=== PATIENT | male | born 1960 | race Two or more races ===

== ENCOUNTER 2017-03-25 22:35 | Observation (INO) | payer SELFPAY ==
[2017-03-25 22:41] VITALS: PULSE 76
--- NOTE | 2017-03-25 23:27 | ED PDOC ---
HPI: Psych/Substance Abuse Time Seen by Provider: 03/25/17 22:50 Chief Complaint (Nursing): Alcohol Ingestion Chief Complaint (Provider): Alcohol ingestion History Per: EMS History/Exam Limitations: no limitations Onset/Duration Of Symptoms: Hrs Current Symptoms Are (Timing): Still Present Additional Complaint(s): The patient is a 56yo male, brought in by EMS after finding the patient publicly intoxicated. Patient admits to drinking alcohol today and currently he offers no medical complaints. Past Medical History Reviewed: Historical Data, Nursing Documentation, Vital Signs Vital Signs: Last Vital Signs Temp 98.0 F 03/25/17 22:37 Pulse 76 03/25/17 22:37 Resp 20 03/25/17 22:37 BP 126/87 03/25/17 22:37 Pulse Ox 99 03/25/17 22:37 - Medical History PMH: No Chronic Diseases - Surgical History Surgical History: No Surg Hx - Family History Family History: States: No Known Family Hx - Allergies Allergies/Adverse Reactions: Allergies Allergy/AdvReac Type Severity Reaction Status Date / Time No Known Allergies Allergy Verified 03/25/17 22:37 Review of Systems ROS Statement: Except As Marked, All Systems Reviewed And Found Negative ( patient has no medical complaints) Physical Exam - Reviewed Nursing Documentation Reviewed: Yes Vital Signs Reviewed: Yes - Physical Exam Appears: Positive for: No Acute Distress Head Exam: Positive for: ATRAUMATIC, NORMAL INSPECTION, NORMOCEPHALIC Skin: Positive for: Normal Color Eye Exam: Positive for: Normal appearance Neck: Positive for: Normal Cardiovascular/Chest: Positive for: Regular Rate, Rhythm Respiratory: Positive for: Normal Breath Sounds. Negative for: Respiratory Distress Neurologic/Psych: Positive for: Alert, Oriented (x 3), Gait (unsteady), Other ( slurred speech). Negative for: Motor/Sensory Deficits - Laboratory Results Result Diagrams: 03/25/17 23:54 03/25/17 23:54 - ECG O2 Sat by Pulse Oximetry: 99 (RA) Pulse Ox Interpretation: Normal Medical Decision Making Medical Decision Making: Time: 2299 Impression: 56yo male with alcohol ingestion Plan: -- Labs -- Accucheck -- Patient to be placed in ED observation pending lab results and clinical sobriety. All further documentation will be placed under ED Obs section. Scribe Attestation: Documented by Natalee Young acting as a scribe for Dony Santacruz MD. Provider Attestation: All medical record entries made by the Scribe were at my direction and personally dictated by me. I have reviewed the chart and agree that the record accurately reflects my personal performance of the history, physical exam, medical decision making, and the department course for this patient. I have also personally directed, reviewed, and agree with the discharge instructions and disposition. ED OBSERVATION Date of observation admission: 03/25/17 Time of observation admission: 23:28 - Observation admission statement Patient is being placed in observation because:: Patient awaiting labs, ED workup - Goals of Observation Goals of observation are:: Patient pending results and clinical sobriety - Progress Note Progress Note: 03/26/17 05:36 At 6AM pt is AAO x3 and has steady gait with fluent speech and is stable for dc home Dx Alcohol intoxication stable Disposition - Clinical Impression Clinical Impression: Alcohol abuse with intoxication - Disposition Disposition: Routine/Home Disposition Time: 23:28 Condition: STABLE
[2017-03-26] LABS: BASO # 0.1 K/uL (0.0-0.2); BASO % 2.2 % (0.0-2.0); EOS # 0.2 K/uL (0.0-0.7); EOS % 5.1 % (0.0-4.0); HEMATOCRIT 29.8 % (35.0-51.0); LYMPH # 0.9 K/uL (1.0-4.3); LYMPH % 29.1 % (20.0-40.0); MEAN CELL VOLUME 85.8 fl (80.0-94.0); MEAN CORPUSCULAR HEMOGLOBIN 27.4 pg (27.0-31.0); MEAN PLATELET VOLUME 9.5 fl (7.2-11.7); MONO # 0.3 K/uL (0.0-0.8); MONO % 8.7 % (0.0-10.0); NEUT # 1.6 K/uL (1.8-7.0); NEUT % 54.9 % (50.0-75.0); NRBC % 0.2 % (0.0-0.0); RED CELL DISTRIBUTION WIDTH 17.4 % (11.5-14.5)
[2017-03-26 00:10] LABS: ALB/GLOB RATIO 0.7 (1.0-2.1); ALCOHOL SERUM 272 mg/dl (0-10); ALKALINE PHOSPHATASE 247 U/L (38-126); ALT/SGPT 44 U/L (21-72); AST/SGOT 153 U/L (17-59); BILIRUBIN,TOTAL 0.8 mg/dl (0.2-1.3); BLOOD UREA NITROGEN 6 mg/dl (9-20); CALCIUM 8.3 mg/dL (8.4-10.2); CARBON DIOXIDE 22 mmol/L (22-30); CHLORIDE 110 mmol/L (98-107); GFR AFRICAN-AMERICAN > 60; GLUCOSE,RANDOM 93 mg/dL (75-110); POTASSIUM 3.8 MMOL/L (3.6-5.0); SODIUM 144 mmol/l (132-148); TOTAL PROTEIN 8.4 G/DL (6.3-8.2)
[2017-03-26 06:08] VITALS: BP 133/81; RESP 16; TEMP 98.4
[2017-03-26 06:40] VITALS: O2SAT 99
== END 2017-03-26 05:46 | disposition home or self-care (01) ==
LOC: H.ER 22:35 → H.EROBSV 23:28
PROVIDERS: ADMIT Emergency Medicine; ATTEND Emergency Medicine
DX: F10.129 Alcohol abuse with intoxication, unspecified (principal)
CPT/HCPCS: 80053; 82948; 85025; 99283; G0378; G0480

== ENCOUNTER 2017-09-20 22:40 | Emergency (ER) | payer SELFPAY ==
[2017-09-20 22:50] VITALS: TEMP 98.1; O2SAT 100
--- NOTE | 2017-09-21 00:35 | ED PDOC ---
HPI: General Adult Time Seen by Provider: 09/20/17 22:54 Chief Complaint (Nursing): Medical Clearance Chief Complaint (Provider): Medical Clearance Additional Complaint(s): 57 y/o male with past medical history of alcoholism brought to the ED by [facility] for medical clearance for incarceration. Patient is homeless. Denies any further medical complaints. Past Medical History Reviewed: Historical Data, Nursing Documentation, Vital Signs Vital Signs: Last Vital Signs Temp 98.1 F 09/20/17 22:46 Pulse 70 09/21/17 08:46 Resp 18 09/21/17 08:46 BP 140/70 09/21/17 08:46 Pulse Ox 100 09/21/17 08:46 - Medical History PMH: No Chronic Diseases - Family History Family History: States: Unknown Family Hx - Allergies Allergies/Adverse Reactions: Allergies Allergy/AdvReac Type Severity Reaction Status Date / Time No Known Allergies Allergy Verified 03/25/17 22:37 Review of Systems ROS Statement: Except As Marked, All Systems Reviewed And Found Negative (As per HPI, otherwise negative) Constitutional: Positive for: Other (Patient is brought to ED for medical clearance) Physical Exam - Reviewed Nursing Documentation Reviewed: Yes Vital Signs Reviewed: Yes - Physical Exam Appears: Positive for: Non-toxic, No Acute Distress Head Exam: Positive for: ATRAUMATIC, NORMAL INSPECTION, NORMOCEPHALIC Skin: Positive for: Normal Color, Warm, Dry Eye Exam: Positive for: EOMI, Normal appearance, PERRL ENT: Positive for: Normal ENT Inspection Neck: Positive for: Normal, Painless ROM, Supple Cardiovascular/Chest: Positive for: Regular Rate, Rhythm. Negative for: Murmur Respiratory: Positive for: Normal Breath Sounds. Negative for: Accessory Muscle Use, Respiratory Distress Gastrointestinal/Abdominal: Positive for: Normal Exam, Bowel Sounds, Soft. Negative for: Tenderness Back: Positive for: Normal Inspection Extremity: Positive for: Normal ROM. Negative for: Deformity Neurologic/Psych: Positive for: Alert, Oriented (x3) - ECG O2 Sat by Pulse Oximetry: 100 (RA) Pulse Ox Interpretation: Normal Medical Decision Making Medical Decision Making: Time: 23:29 Initial Impression: 57 y/o male for medical clearance Plan: Crisis evaluation Alcohol serum Accucheck Time: 07:00 Patient will be signed out to Dr. Powell pending crisis evaluation. Scribe Attestation: Documented by Kusum Suazo acting as a scribe for Dony Santacruz MD. Scribe Attestation: All medical record entries made by the Scribe were at my direction and personally dictated by me. I have reviewed the chart and agree that the record accurately reflects my personal performance of the history, physical exam, medical decision making, and the department course for this patient. I have also personally directed, reviewed, and agree with the discharge instructions and disposition. Disposition - Clinical Impression Clinical Impression: Alcohol abuse with intoxication - Disposition Referrals: [facility] [place] [Outside] Disposition Time: 07:00 Condition: FAIR Instructions: Alcohol Abuse and Alcoholism (DC) Forms: [employer] (Tunisian) Patient Signed Over To: Jesus Powell
--- NOTE | 2017-09-21 07:04 | ED PDOC ---
- ECG O2 Sat by Pulse Oximetry: 100 (RA) - Progress Re-evaluation Time: 07:49 Condition: Improved (Awake alert oriented x 3 no focal neuro defiicts) Medical Decision Making Medical Decision Making: Time: 0700 --Patient was endorsed to provider by Dr. Dony Santacruz. Pending crisis evaluation. Scribe Attestation: Documented by Leigh Ann Lopez, acting as a scribe for Jesus Powell MD. Provider Scribe Attestation: All medical record entries made by the Scribe were at my direction and personally dictated by me. I have reviewed the chart and agree that the record accurately reflects my personal performance of the history, physical exam, medical decision making, and the department course for this patient. I have also personally directed, reviewed, and agree with the discharge instructions and disposition. Disposition - Clinical Impression Clinical Impression: Alcohol abuse with intoxication - POA Present On Arrival: None - Disposition Referrals: [facility] [Outside] Disposition: Routine/Home Disposition Time: 07:50 Condition: FAIR Instructions: Alcohol Abuse and Alcoholism (DC) Forms: [employer] (Bahamian)
[2017-09-21 08:47] VITALS: BP 140/70; PULSE 70; RESP 18
== END 2017-09-21 08:07 | disposition home or self-care (01) ==
LOC: H.ER 22:40
DX: F10.129 Alcohol abuse with intoxication, unspecified (principal); Z59.0 Homelessness
CPT/HCPCS: 82948; 99281; G0480

== ENCOUNTER 2018-03-06 21:54 | Emergency (ER) | payer SELFPAY ==
[2018-03-06 21:55] VITALS: BMI 26.6
--- NOTE | 2018-03-06 22:03 | ED PDOC ---
HPI: Psych/Substance Abuse Time Seen by Provider: 03/06/18 22:00 Chief Complaint (Nursing): Alcohol Ingestion Chief Complaint (Provider): etoh, clearance History Per: Patient Additional Complaint(s): 57-year-old male presents to emergency department under arrest and in police custody for medical and psychiatric clearance. Patient offers no acute complaints at this time. Patient admits to drinking and states that he drinks every day. He denies any drug use. No recent trauma or injury. PMD: none Past Medical History Reviewed: Historical Data, Nursing Documentation, Vital Signs Vital Signs: Last Vital Signs Temp 98 F 03/06/18 21:58 Pulse 98 H 03/06/18 21:58 Resp 16 03/06/18 21:58 BP 151/90 H 03/06/18 21:58 Pulse Ox 98 03/06/18 21:58 - Medical History PMH: No Chronic Diseases - Family History Family History: States: No Known Family Hx - Social History Current smoker - smoking cessation education provided: Yes Alcohol: > 2 Drinks/Day Drugs: Denies - Home Medications Home Medications: Ambulatory Orders Medication Instructions Recorded No Known Home Med 12/07/17 - Allergies Allergies/Adverse Reactions: Allergies Allergy/AdvReac Type Severity Reaction Status Date / Time No Known Allergies Allergy Verified 03/06/18 21:58 Review of Systems ROS Statement: Except As Marked, All Systems Reviewed And Found Negative Constitutional: Negative for: Fever Cardiovascular: Negative for: Chest Pain Respiratory: Negative for: Cough Gastrointestinal: Negative for: Nausea, Vomiting Psych: Positive for: Other (etoh). Negative for: Suicidal ideation Physical Exam - Reviewed Nursing Documentation Reviewed: Yes Vital Signs Reviewed: Yes - Physical Exam Appears: Positive for: Well, Non-toxic, No Acute Distress Skin: Positive for: Normal Color. Negative for: Rash Eye Exam: Positive for: Normal appearance Cardiovascular/Chest: Positive for: Regular Rate, Rhythm Respiratory: Positive for: Normal Breath Sounds. Negative for: Wheezing, Respiratory Distress Neurologic/Psych: Positive for: Alert, Other (Intoxicated, answer some questions appropriately) - Laboratory Results Result Diagrams: 03/07/18 00:26 03/07/18 00:20 - ECG Interpretation Of ECG: NSR 74 bpm, no acute changes, reviewed by PA and ED attending O2 Sat by Pulse Oximetry: 98 Pulse Ox Interpretation: Normal Medical Decision Making Medical Decision Makin57 year old intoxicated male in police custody Plan: CBC CMP Troponin BAL EKG Crisis eval As per crisis counselor and psychiatrist orthodontist Dr. Mark, patient does not meet criteria for psychiatric admission. Patient stable for discharge. Patient is medically and psychiatrically stable for incarceration. Disposition - Clinical Impression Clinical Impression: Alcohol abuse - Patient ED Disposition Is Patient to be Admitted: No - Disposition Referrals: [facility] [Outside] Disposition: Routine/Home Disposition Time: 03:28 Condition: FAIR Additional Instructions: Patient is medically and psychiatrically stable for incarceration. Instructions: Alcohol Abuse and Alcoholism (DC) Forms: [employer] (German)
[2018-03-07 00:28] LABS: HEMOGLOBIN 8.2 g/dL (12.0-18.0); MEAN CELL VOLUME 84.3 fl (80.0-94.0); MEAN CORPUSCULAR HEMOGLOBIN 26.9 pg (27.0-31.0); MEAN CORPUSCULAR HGB CONC 31.9 g/dL (33.0-37.0); RBC 3.05 Mil/uL (4.40-5.90); RED CELL DISTRIBUTION WIDTH 20.9 % (11.5-14.5); WHITE BLOOD COUNT 2.5 K/uL (4.8-10.8)
[2018-03-07 00:28] LABS: BLOOD UREA NITROGEN 8 mg/dl (9-20); CALCIUM 8.4 mg/dL (8.4-10.2); GFR AFRICAN-AMERICAN > 60; GFR NON-AFRICAN AMERICAN > 60
[2018-03-07 04:22] VITALS: BP 128/82; PULSE 88; RESP 18; TEMP 98.2; O2SAT 99
--- NOTE | 2018-03-07 07:18 | CARD ---
APPROVED REPORT Date of service: 03/07/2018 <Conclusion> Normal sinus rhythm Normal ECG
== END 2018-03-07 04:21 | disposition home or self-care (01) ==
LOC: H.ER 21:54
DX: F10.10 Alcohol abuse, uncomplicated (principal); F17.200 Nicotine dependence, unspecified, uncomplicated
CPT/HCPCS: 80048; 82948; 85027; 93005; 99283; G0480

== ENCOUNTER 2018-05-07 20:39 | Emergency (ER) | payer SELFPAY ==
[2018-05-07 20:39] VITALS: BMI 26.6
[2018-05-07 20:51] VITALS: O2SAT 100
--- NOTE | 2018-05-07 22:31 | ED PDOC ---
HPI: Psych/Substance Abuse Time Seen by Provider: 05/07/18 20:52 Chief Complaint (Nursing): Alcohol Ingestion Chief Complaint (Provider): Alcohol Ingestion ED Caveat: Intoxicated History Per: EMS History/Exam Limitations: intoxication Onset/Duration Of Symptoms: Mins (prior to arrival) Current Symptoms Are (Timing): Still Present Additional Complaint(s): 57 year old homeless male well known to the ED presents via EMS for public intoxication. Due to intoxication, history is limited. At this time, patient is ambulating with an unsteady gait. PMD: none provided Past Medical History Reviewed: Historical Data, Nursing Documentation, Vital Signs Vital Signs: Last Vital Signs Temp 97.8 F 05/07/18 20:48 Pulse 75 05/07/18 20:48 Resp 16 05/07/18 20:48 BP 129/69 05/07/18 20:48 Pulse Ox 100 05/07/18 20:48 - Medical History PMH: No Chronic Diseases Denies: Diabetes, Hepatitis, HIV, HTN, Seizures, Sexually Transmitted Disease - Surgical History Surgical History: No Surg Hx - Family History Family History: States: Unknown Family Hx - Living Arrangements Living Arrangements: Other (homeless) - Social History Current smoker - smoking cessation education provided: Yes Alcohol: Other (hx of alcohol abuse) Drugs: Denies - Home Medications Home Medications: Ambulatory Orders Medication Instructions Recorded No Known Home Med 12/07/17 - Allergies Allergies/Adverse Reactions: Allergies Allergy/AdvReac Type Severity Reaction Status Date / Time No Known Allergies Allergy Verified 03/06/18 21:58 Review of Systems Review Of Systems: ROS cannot be obtained secondary to pt's inabilty to answer questions. Psych: Positive for: Other (intoxicated) Physical Exam - Reviewed Nursing Documentation Reviewed: Yes Vital Signs Reviewed: Yes - Physical Exam Appears: Positive for: No Acute Distress (but intoxicated appearing) Head Exam: Positive for: ATRAUMATIC, NORMOCEPHALIC Skin: Positive for: Normal Color. Negative for: Rash ENT: Positive for: Normal ENT Inspection Neck: Positive for: Normal, Painless ROM, Supple Cardiovascular/Chest: Positive for: Regular Rate, Rhythm Respiratory: Positive for: Normal Breath Sounds. Negative for: Accessory Muscle Use, Respiratory Distress Gastrointestinal/Abdominal: Positive for: Normal Exam, Soft. Negative for: Tenderness Back: Positive for: Normal Inspection Extremity: Positive for: Normal ROM Neurologic/Psych: Positive for: Alert (and awake), Gait (unsteady), Other (speech slurred with alcohol on breath) - ECG O2 Sat by Pulse Oximetry: 100 (RA) Pulse Ox Interpretation: Normal Medical Decision Making Medical Decision Making: Time: 2099 Initial Impression: 57 year old male with etoh intoxication Initial Plan: --Alcohol serum --Drug screen --Accucheck --Monitor for clinical sobriety 05:40 Upon provider reevaluation patient is awake, alert and orientedx3 with steady gait and fluent speech. Patient is medically stable, and requires no further treatment in the ED at this time. Patient will be discharged home, diagnosis of alcohol abuse. Counseling was provided and all questions were answered regarding diagnosis. There is agreement to discharge plan. Scribe Attestation: Documented by Sajnuana Sampson, acting as a scribe for Dony Santacruz MD. Provider Scribe Attestation: All medical record entries made by the Scribe were at my direction and personally dictated by me. I have reviewed the chart and agree that the record accurately reflects my personal performance of the history, physical exam, medical decision making, and the department course for this patient. I have also personally directed, reviewed, and agree with the discharge instructions and disposition. Disposition - Clinical Impression Clinical Impression: Alcohol abuse with intoxication - Disposition Disposition: Routine/Home Disposition Time: 05:40 Condition: STABLE Instructions: Alcohol Abuse and Alcoholism (DC) Forms: [employer] (Mongolian) Print Language: [place]
[2018-05-08 06:46] VITALS: BP 122/65; PULSE 81; RESP 18; TEMP 98.2
== END 2018-05-08 06:05 | disposition home or self-care (01) ==
LOC: H.ER 20:39
DX: F10.129 Alcohol abuse with intoxication, unspecified (principal); F17.200 Nicotine dependence, unspecified, uncomplicated; Z59.0 Homelessness
CPT/HCPCS: 82948; 99282; G0480

== ENCOUNTER 2018-05-16 19:34 | Emergency (ER) | payer SELFPAY ==
[2018-05-16 19:35] VITALS: BMI 26.6
--- NOTE | 2018-05-16 21:10 | ED PDOC ---
HPI: General Adult Time Seen by Provider: 05/16/18 19:51 Chief Complaint (Nursing): Medical Clearance Chief Complaint (Provider): Medical Clearance History Per: Patient, EMS History/Exam Limitations: no limitations Additional Complaint(s): 57 year old male presents to the ED via EMS with police for medical clearance for incarceration. Patient is complaining of chronic eczema to his legs. PMD: none provided Past Medical History Reviewed: Historical Data, Nursing Documentation, Vital Signs Vital Signs: Last Vital Signs Temp 97.9 F 05/16/18 19:37 Pulse 89 05/16/18 19:37 Resp 18 05/16/18 19:37 BP 153/77 H 05/16/18 19:37 Pulse Ox 98 05/16/18 19:37 - Medical History PMH: No Chronic Diseases Denies: Diabetes, Hepatitis, HIV, HTN, Seizures, Sexually Transmitted Disease - Surgical History Surgical History: Cholecystectomy - Family History Family History: States: Unknown Family Hx - Social History Current smoker - smoking cessation education provided: Yes (Current Some Days Smoker) Alcohol: Other (daily) Drugs: Denies - Home Medications Home Medications: Ambulatory Orders Medication Instructions Recorded No Known Home Med 12/07/17 - Allergies Allergies/Adverse Reactions: Allergies Allergy/AdvReac Type Severity Reaction Status Date / Time No Known Allergies Allergy Verified 05/16/18 19:37 Review of Systems ROS Statement: Except As Marked, All Systems Reviewed And Found Negative Skin: Positive for: Other (chronic eczema to legs) Physical Exam - Reviewed Nursing Documentation Reviewed: Yes Vital Signs Reviewed: Yes - Physical Exam Appears: Positive for: Non-toxic, No Acute Distress Head Exam: Positive for: ATRAUMATIC, NORMOCEPHALIC Eye Exam: Positive for: Normal appearance Neck: Positive for: Normal, Painless ROM Cardiovascular/Chest: Positive for: Regular Rate, Rhythm. Negative for: Murmur Respiratory: Positive for: Normal Breath Sounds. Negative for: Wheezing, Respiratory Distress Extremity: Positive for: Normal ROM, Other (chornic appearing skin change to bilateral lower extremities with serous drainage on the left lower extremity) Neurologic/Psych: Positive for: Alert, Oriented. Negative for: Motor/Sensory Deficits Comments: Lice on patient; patient deconned. Healed wound on scalp. - ECG O2 Sat by Pulse Oximetry: 98 (RA) Pulse Ox Interpretation: Normal Medical Decision Making Medical Decision Making: Initial Impression: Medical clearance for incarceration Initial Plan: --Alcohol serum --CMP --ED urine dipstick --CBC --Urinalysis 21:14 Four les taken out of posterior scalp. Patient states les were placed 2 weeks ago at [facility]. Scribe Attestation: Documented by Deni Murray acting as a scribe for Sylwia Ness MD. Provider Scribe Attestation: All medical record entries made by the Scribe were at my direction and per sonally dictated by me. I have reviewed the chart and agree that the record accurately reflects my personal performance of the history, physical exam, medical decision making, and the department course for this patient. I have also personally directed, reviewed, and agree with the discharge instructions and disposition. Disposition - Disposition
[2018-05-16 21:23] LABS: EOS % 0.6 % (0.0-4.0); HEMOGLOBIN 7.4 g/dL (12.0-18.0); LYMPH # 2.5 K/uL (1.0-4.3); LYMPH % 62.3 % (20.0-40.0); MEAN CELL VOLUME 76.3 fl (80.0-94.0); MEAN CORPUSCULAR HEMOGLOBIN 23.1 pg (27.0-31.0); MEAN CORPUSCULAR HGB CONC 30.2 g/dL (33.0-37.0); MONO # 0.2 K/uL (0.0-0.8); MONO % 4.3 % (0.0-10.0); NEUT # 1.3 K/uL (1.8-7.0); NEUT % 31.8 % (50.0-75.0); RBC 3.2 Mil/uL (4.40-5.90); RED CELL DISTRIBUTION WIDTH 19.1 % (11.5-14.5); WHITE BLOOD COUNT 3.9 K/uL (4.8-10.8)
[2018-05-16 21:34] LABS: ALB/GLOB RATIO 0.7 (1.0-2.1); ALBUMIN 3.6 g/dL (3.5-5.0); ALT/SGPT 50 U/L (21-72); AST/SGOT 178 U/L (17-59); BLOOD UREA NITROGEN 9 mg/dl (9-20); GFR NON-AFRICAN AMERICAN > 60
[2018-05-16 22:35] VITALS: RESP 16; TEMP 97.1; O2SAT 100
--- NOTE | 2018-05-17 00:35 | ED PDOC ---
- Laboratory Results Result Diagrams: 05/16/18 21:19 05/16/18 21:19 - ECG O2 Sat by Pulse Oximetry: 100 (RA) Pulse Ox Interpretation: Normal Medical Decision Making Medical Decision Making: Time: 0000 --Patient signed out to this provider by Dr. Ness, pending clinical sobriety. Scribe Attestation: Documented by Manda Murray, acting as a scribe for Anyi Wu MD Provider Scribe Attestation: All medical record entries made by the Scribe were at my direction and personally dictated by me. I have reviewed the chart and agree that the record accurately reflects my personal performance of the history, physical exam, medical decision making, and the department course for this patient. I have also personally directed, reviewed, and agree with the discharge instructions and disposition. Disposition Doctor Will See Patient In The: Office Counseled Patient/Family Regarding: Studies Performed, Diagnosis, Need For Followup - Clinical Impression Clinical Impression: Alcohol abuse, Chronic anemia, Pancytopenia - POA Present On Arrival: None - Disposition Disposition: Discharged/Transfer to Law Enforcement Disposition Time: 05:49 Condition: GOOD Additional Instructions: Patient is medically and psychiatrically cleared for incarceration. Instructions: Alcohol Abuse and Alcoholism (DC)
[2018-05-17 04:41] LABS: URINE AMORPHOUS SEDIMENT RARE /ul (<OCC); URINE BACTERIA RARE (<OCC); URINE BILIRUBIN NEGATIVE (NEGATIVE); URINE BLOOD NEGATIVE (NEGATIVE); URINE CLARITY SLIGHTY-CLOUDY (Clear); URINE COLOR YELLOW (YELLOW); URINE GLUCOSE (UA) NEG (Normal); URINE LEUKOCYTE ESTERASE NEG Leu/uL (Negative); URINE PROTEIN NEGATIVE (NEGATIVE)
[2018-05-17 06:01] VITALS: BP 105/53; PULSE 83
== END 2018-05-17 06:30 ==
LOC: H.ER 19:34
DX: F10.10 Alcohol abuse, uncomplicated (principal); D61.818 Other pancytopenia; D64.9 Anemia, unspecified
CPT/HCPCS: 80053; 81003; 82948; 85025; 99282; G0480